=== PATIENT | female | born 1960 | race Asian ===

== ENCOUNTER 2020-11-18 09:54 | Day surgery (SDC) | payer OTHER, SELFPAY ==
[~2020-11-18] VITALS: Ht 165.1 cm; Wt 61.2 kg
[2020-11-18] MEDS ORDERED: diphenhydrAMINE 50 MG/ML VIAL ONE (10:40)
[2020-11-18] MEDS ORDERED: fentaNYL citrate 0.05 MG/ML VIAL ONE (10:41)
[2020-11-18] MEDS ORDERED: MIDAZOLAM 5 MG/5 ML VIAL ONE (10:41)
[2020-11-18] MEDS ORDERED: LIDOCAINE 2% 100 MG/5 ML UJET TP ONE ×2 (10:41→11:05)
[2020-11-18] MEDS ORDERED: MIDAZOLAM 2 MG/2 ML VIAL IVP ONE (11:05)
[2020-11-18] MEDS ORDERED: SIMETHICONE 40 MG/0.6 ML PO ONE (11:05)
[2020-11-18] MEDS ORDERED: fentaNYL citrate 0.05 MG/ML VIAL IVP ONE (11:05)
== END 2020-11-18 12:00 | disposition home or self-care (01) ==
LOC: MDS 09:54 → MMU 09:54 → MDS 12:00
PROVIDERS: ATTEND Internal Medicine Gastroenterology
DX: K59.00 Constipation, unspecified (principal); K62.1 Rectal polyp; Z20.828 Contact with and (suspected) exposure to other viral communicable diseases; Z79.899 Other long term (current) drug therapy
CPT/HCPCS: 45385; J2250; J3010; U0003; J1200